=== PATIENT | female | born 1965 | race Hispanic/Latino ===

== ENCOUNTER 2018-03-14 17:31 | Emergency (ER) | payer OTHER ==
[~2018-03-14] VITALS: Ht 165.1 cm; Wt 85.0 kg
[~2018-03-14 17:31] MED LIST: AMOXICILLIN500 MG PO; CIPROFLOXACN500 MG PO; CLARITIN10 M1 PO; DILAUDID 2MG2 MG/TA1 PO; FLEXERIL OR; GENTAMICIN0.3 % OS; INVANZ1 GM IJ; LORTAB 5/3255 MG PO; NAPROSYN500 MG OR; NO HOME MEDS; ROBITUSSIN AC10 ML PO; TAMSULOSIN0.4 MG PO; TRAMADOL HCL50 MG OR
[2018-03-14 18:16] LABS: HEMATOCRIT 39.1 % (37.0-47.0); HEMOGLOBIN 13.5 g/dl (12.0-16.0); IMMATURE GRANULOCYTES 0.3 % (0.0-1.0); MEAN CELL VOLUME 88.9 fL CALC (80.0-100.0); MEAN CORPUSCULAR HGB 30.7 pG CALC (26.0-32.0); MEAN CORPUSCULAR HGB CONC 34.5 g/L CALC (32.0-36.0); NEUT# 6.63 thou/uL (2.00-7.15); RED BLOOD COUNT 4.4 mill/uL (4.20-5.60); RED CELL DISTRI WIDTH 12.3 % (11.5-15.5)
[2018-03-14 18:30] LABS: ALBUMIN 3.9 g/dL (3.2-5.0); ALKALINE PHOSPHATASE 78 u/l (38-126); ANION GAP 16 (6-22 (CALC)); BILIRUBIN, TOTAL 0.4 mg/dL (0.0-1.4); BUN 17 mg/dL (7-17); BUN/CREATININE RATIO 28 (12-20 (CALC)); CARBON DIOXIDE 24 mmol/l (22-30); CHLORIDE 105 mmol/l (95-108); CREATININE 0.6 mg/dL (0.5-1.0); GFR > 60 ML/MIN (>=60 (CALC)); GFR FOR AFR.AMER. > 60 ML/MIN (>=60 (CALC)); LIPASE 120 u/l (23-300); POTASSIUM 3.8 mmol/l (3.5-5.1); SGOT/AST 36 u/l (14-36); SGPT/ALT 46 u/l (9-52); SODIUM 142 mmol/l (137-146); TOTAL PROTEIN 7.7 g/dL (6.3-8.2)
[2018-03-14 18:46] LABS: BETA-HCG, QUANT(RESULT NUMBER) <2 mIU/mL
[2018-03-14 20:47] LABS: URINE BILIRUBIN - DIPSTICK NEGATIVE (NEGATIVE); URINE BLOOD DIPSTICK NEGATIVE (NEGATIVE); URINE CLARITY CLEAR; URINE COLOR YELLOW; URINE GLUCOSE - DIPSTICK NEGATIVE (NEGATIVE); URINE KETONE NEGATIVE (NEGATIVE); URINE LEUK ESTERASE NEGATIVE (NEGATIVE); URINE NITRITE - DIPSTICK NEGATIVE (Negative); URINE PH 7.5 (4.5-8.0); URINE PROTEIN - DIPSTICK NEGATIVE (NEG-TRACE); URINE SPECIFIC GRAVITY 1.015; URINE UROBILINOGEN - DIPSTICK 0.2 E.U./dL (0.2)
[2018-03-14 21:06] VITALS: BP 140/90
== END 2018-03-14 21:09 | disposition home or self-care (01) | DRG 552 ==
LOC: ED 17:31
PROVIDERS: Family Medicine
DX: S16.1XXA Strain of muscle, fascia and tendon at neck level, initial encounter (principal); S29.012A Strain of muscle and tendon of back wall of thorax, initial encounter; S39.012A Strain of muscle, fascia and tendon of lower back, initial encounter; T14.8XXA Other injury of unspecified body region, initial encounter; V49.40XA Driver injured in collision with unspecified motor vehicles in traffic accident, initial encounter
CPT/HCPCS: Q9967